=== PATIENT | female | born 1950 | race African-American/Black ===

== ENCOUNTER 2022-02-03 15:25 | Inpatient (IN) | payer OTHER ==
[~2022-02-03] VITALS: Ht 152.4 cm; Wt 69.4 kg
[2022-02-03] MEDS ORDERED: ONDANSETRON 4MG ODT PO ONE (16:00)
[2022-02-03] MEDS ORDERED: TRAMADOL 50MG TABLET PO ONE (16:00)
[2022-02-03] MEDS ORDERED: LIDOCAINE HCL/EPINEPHRINE 1%-EPI 1:100,000 20 ML VIAL INFIL ONE (19:00)
[2022-02-03] MEDS ORDERED: TETANUS, DIPHTHERIA, PERTUSSIS VAC/PF 0.5ML (>10YR OLD) IM ONE (19:00)
[2022-02-03] MEDS: LIDOCAINE HCL/EPINEPHRINE 1%-EPI 1:100,000 10 ML VIAL INFIL NR ×2 (20:00→23:47)
[2022-02-03] MEDS ORDERED: BACITRACIN ZINC OINT UDPKT TOP ONE (20:30)
[2022-02-03 21:51] LABS: BASOPHILS % 0.7 % (0.0-2.0); EOSINOPHILS % 1.9 % (0.0-5.0); HEMATOCRIT. 46.6 % (36.0-48.0); HEMOGLOBIN. 15.4 g/dL (12.0-16.0); MEAN CORPUSCULAR VOLUME 93.7 fL (81.0-99.0); MEAN PLATELET VOLUME 8.5 fl (7.4-10.4); MONOCYTES % 8.3 % (2.0-8.0); NEUTROPHILS % 63.1 % (40.0-76.0); PLATELET 211 x1000/uL (130-400); RED BLOOD CELL COUNT 4.98 mill/uL (4.2-5.4); RED CELL DISTRIBUTION WIDTH 14.4 % (11.6-14.6)
[2022-02-03 22:41] LABS: CHLORIDE 112 mEq/L (98-107)
[2022-02-04 01:37] VITALS: BP 157/68
[2022-02-04] MEDS ORDERED: HYDROCODONE/ACETAMINOPHEN 5/325MG TABLET PO PRN (02:30)
[2022-02-04] MEDS ORDERED: NALOXONE HCL 0.4MG/ML VIAL IV PRN (02:45)
[2022-02-04] MEDS: ACETAMINOPHEN 325MG TABLET PO PRN ×3 (02:53→13:39)
[2022-02-04 08:00] VITALS: BP 149/78
[2022-02-04] MEDS ORDERED: CARVEDILOL 3.125 MG TABLET PO SCH (09:00)
[2022-02-04] MEDS ORDERED: PANTOPRAZOLE 40MG DR TABLET PO SCH (09:00)
[2022-02-04] MEDS ORDERED: MORPHINE SULFATE 2 MG/ML CPJ (NOT FOR IM USE) IV PRN (10:15)
[2022-02-04] MEDS ORDERED: ONDANSETRON HCL 4MG/2ML INJ IV PRN (10:15)
[2022-02-04 12:00] VITALS: BP 151/69
[2022-02-04 16:00] VITALS: BP 128/66
[2022-02-04 16:06] LABS: CHLORIDE 109 mEq/L (98-107)
[2022-02-04 16:11] LABS: BASOPHILS % 0.6 % (0.0-2.0); EOSINOPHILS % 2.7 % (0.0-5.0); HEMATOCRIT. 44.7 % (36.0-48.0); HEMOGLOBIN. 14.6 g/dL (12.0-16.0); LYMPHOCYTES % 33.6 % (20.0-50.0); MEAN CORPUSCULAR HEMOGLOBIN 30.8 pg (28.0-32.0); MEAN CORPUSCULAR VOLUME 94.5 fL (81.0-99.0); MEAN PLATELET VOLUME 8.9 fl (7.4-10.4); MONOCYTES % 6.6 % (2.0-8.0); NEUTROPHILS % 56.5 % (40.0-76.0); PLATELET 191 x1000/uL (130-400); RED BLOOD CELL COUNT 4.74 mill/uL (4.2-5.4); RED CELL DISTRIBUTION WIDTH 14.2 % (11.6-14.6)
== END 2022-02-04 17:15 | disposition left against medical advice (07) | DRG 552 ==
LOC: ER 15:25 → 7EST 22:24 → EDBEDREQTM 22:41 → EDBEDREQ 22:41 → ENRESERV 23:31
PROVIDERS: ADMIT Internal Medicine; ATTEND Internal Medicine
PROC: 0HQKXZZ Repair Right Lower Leg Skin, External Approach (ICD-10-PCS; principal; 2022-02-03)
DX: M48.02 Spinal stenosis, cervical region (principal); I69.351 Hemiplegia and hemiparesis following cerebral infarction affecting right dominant side; G99.2 Myelopathy in diseases classified elsewhere; S81.811A Laceration without foreign body, right lower leg, initial encounter; Y92.410 Unspecified street and highway as the place of occurrence of the external cause; I10 Essential (primary) hypertension; M25.78 Osteophyte, vertebrae; I25.10 Atherosclerotic heart disease of native coronary artery without angina pectoris; Z95.1 Presence of aortocoronary bypass graft; Z53.29 Procedure and treatment not carried out because of patient's decision for other reasons; V89.2XXA Person injured in unspecified motor-vehicle accident, traffic, initial encounter; Y93.89 Activity, other specified; Y92.89 Other specified places as the place of occurrence of the external cause; Y99.8 Other external cause status
CPT/HCPCS: 36415; 71045; 72070; 72141; 73030; 73562; 73590; 80048; 80053; 85025; 87426; 90715; 93005; 99291; J3490; Q0162